=== PATIENT | male | born 1970 | race American Indian/Alaskan Native ===

== ENCOUNTER 2018-03-20 02:09 | Inpatient (IN) | payer MEDICAID ==
[2018-03-20 02:10] VITALS: BMI 22.6
--- NOTE | 2018-03-20 03:17 | C.PDOC ---
History Of Present Illness Patient presents to the ER as a transfer from [facility] where he was medically cleared, accepted for admission for major depression by Dr. Chiu. Denies any physical complaints at this time. Time Seen by Provider: 03/20/18 03:12 Chief Complaint (Nursing): Psychiatric Evaluation History Per: Patient, Other ([facility]) History/Exam Limitations: no limitations Onset/Duration Of Symptoms: Days Current Symptoms Are (Timing): Still Present Suicide/Self Injury Attempted (Context): None Modifying Factor(s): None Severity: None Pain Scale Rating Of: 0 Associated Symptoms: Depression Involuntary Hold By: None Recent travel outside of the [place]: No Past Medical History Reviewed: Historical Data, Nursing Documentation, Vital Signs Vital Signs: Last Vital Signs Temp 98.2 F 03/20/18 02:33 Pulse 64 03/20/18 02:33 Resp 20 03/20/18 02:33 BP 153/83 H 03/20/18 02:33 Pulse Ox 100 03/20/18 02:33 - Medical History PMH: Anxiety, Arthritis, Depression, HTN Family History: States: No Known Family Hx - Social History Hx Alcohol Use: Yes Hx Substance Use: Yes Review Of Systems Constitutional: Negative for: Fever, Chills Cardiovascular: Negative for: Chest Pain, Palpitations Respiratory: Negative for: Cough, Shortness of Breath Gastrointestinal: Negative for: Nausea, Vomiting Psych: Positive for: Depression Physical Exam - Physical Exam Appears: Non-toxic Skin: Warm, Dry Head: Normacephalic Oral Mucosa: Moist Chest: Symmetrical, No Tenderness Cardiovascular: Rhythm Regular Respiratory: No Rales, No Rhonchi, No Wheezing Gastrointestinal/Abdominal: Soft, No Tenderness Neurological/Psych: Oriented x3 ED Course And Treatment O2 Sat by Pulse Oximetry: 100 (Room air) Pulse Ox Interpretation: Normal Disposition Discussed With : Argelia Chiu Comment[facility] and took over the care at 3:20 AM Doctor Will See Patient In The: Hospital Counseled Patient/Family Regarding: Studies Performed, Diagnosis - Disposition Disposition: HOSPITALIZED Disposition Time: 03:20 Condition: FAIR Forms: [facility] ([place]) - POA Present On Arrival: None - Clinical Impression Clinical Impression: Major depression - Scribe Statement The provider has reviewed the documentation as recorded by the Scribe Charli Mortensen All medical record entries made by the Scribe were at my direction and personally dictated by me. I have reviewed the chart and agree that the record accurately reflects my personal performance of the history, physical exam, medical decision making, and the department course for this patient. I have also personally directed, reviewed, and agree with the discharge instructions and disposition. Decision To Admit - Pt Status Changed To: Hospital Disposition Of: Inpatient - Admit Certification Admit to Inpatient:: After my assessment, the patient will require hospitalization for at least two midnights. This is because of the severity of symptoms shown, intensity of services needed, and/or the medical risk in this patient being treated as an outpatient. - InPatient: Physician Admission Certification: I certify that this patient requires 2 or more midnights of care for the following reason:: After my assessment, the patient will require hospitalization for at least two midnights. This is because of the severity of symptoms shown, intensity of services needed, and/or the medical risk in this patient being treated as an outpatient. - . Bed Request Type: Psychiatry Admitting Physician: Argelia Chiu Patient Diagnosis: Major depression
--- NOTE | 2018-03-20 05:41 | PCM.BM ---
<Dimitrios Mosqueda - Last Filed: 03/20/18 05:38> Treatment Plan Problems - Problems identified on initial assessmt MAJOR DEPRESSIVE DISORDER Date Initiated: 03/20/18 Time Initiated: 04:50 Assessment reference: NA Status: Active SUBSTANCE ABUSE Date Initiated: 03/20/18 Time Initiated: 04:50 Assessment reference: NA Status: Active Treatment assets and liabiliti Patient Assests: cooperative, self-reliant, ADL independent, negotiates basic needs Patient Liabilities: financial problems, poor support system, relationship conflicts, dietary restrictions, substance abuse, medical problems - Milieu Protocol Maintain good personal hygiene: daily Encourage regular showers, daily Remind patient to perform daily oral care, daily Assist patient to perform ADL's Maintain personal safety: every shift Educate patient to report safety concerns to staff, every shift Monitor environment for contraband/sharps Medication safety: Monitor for expected outcome, potential side effects: every shift, Assess barriers to learning: every shift, Assess readiness for medication education: every shift <Dory Morgan - Last Filed: 03/22/18 13:14> Family Contact Family involvement: Famliy/SO not involved - Goals for Treatment Patient goals for treatment: "I want to go to rehab in [place]." Discharge/Continuing Care - Education Needs Education Needs: Patient Medication, Patient Coping Skills, Patient Placement options, Patient Community resources - Discharge Discharge Criteria: Tolerates medication w/o severe side effects, No longer exhibiting s/s of withdrawal, Reduction of target symptoms Discharge to:: Substance Abuse Rehab - Treatment Team Participation Discussed with Family/SO: No Was Patient/Family/SO present at Treatment Team Meeting: Yes <Argelia Chiu - Last Filed: 03/24/18 13:24> - Diagnosis (1) Major depression Status: Acute Interventions: 03/24/18 13:24 * Assess/adjust medications daily and /or as needed * See patient on an individual basis 7x/week to assess symptoms of depression * Monitor for side effects & effectiveness of medications * (2) Opioid use disorder, severe, dependence Status: Acute Interventions: 03/24/18 13:24 * Assess 7x/week regarding severity of withdrawal * Educate regarding risks, benefits, side effects and alternatives of medications * Use Motivational Interviewing for abstinence * Use CBT for relapse prevention * Medication management for withdrawal symptoms * Encourage medication assisted treatment *
--- NOTE | 2018-03-20 12:55 | PCM.PSYCH ---
Initial Psychiatric Evaluation - Initial Psychiatric Evaluation Type of Admission: Voluntary Legal Status: Capacity Chief Complaint (in patient's own words): I do not want to live anymore. History of Present Illness and Precipitating Events: Patient is a 47 years old, , unemployed, -[place]ian male with history of depression and substance use was admitted due to worsening of depression and withdrawing from heroin and alcohol. Patient with history of depression for last many years, on medications including Risperdal and gabapentin, currently noncompliant for about 1 week, started feeling increasingly depressed with suicidal ideations to kill himself with a knife, was brought to ER and was admitted. Patient reported that him and his are not getting along, is from his recently which was another trigger for depression and suicidal attempt. Patient has history of 5 previous suicidal attempts by different means including jumping from second story and cutting on self, was admitted to the hospital after all these attempts. Patient also reported seeing things and hearing voices. Also believes that people are watching him and are staring at him. Opioid: This is his drug of choice. Started using heroin 3 years ago, was using 15 bags of heroin daily, now reduced to 5 bags daily, sniffing, last used 2 days ago. Alcohol: This is also his drug of choice. He started using alcohol at 11 years of age, increased gradually. Currently he was using 6 cans of beer daily, each of 24 ounces. Last drink yesterday. His longest period of abstinence was 11 months 2-1/2 years ago. No history of previous detox or rehabs. Patient also smokes 4-5 cigars daily, refused to take nicotine patch. Patient has history of left hip replacement for more than 1 year ago. Patient was born in [place], has ninth grade of education. He is not working for last 1 year and was supported by his , for last 1 week. He has 2 grownup daughters from another female. Currently he lives with his mother. Past Psychiatric History - Past Psychiatric History Previous Treatment History: Partial Hospital History of Abuse: None reported History of ETOH/Drug Use: See HPI History of Family Illness: None reported Pertinent Medical Hx (Current Medical&Sleep Prob, Allergies): Allergies Allergy/AdvReac Type Severity Reaction Status Date / Time No Known Allergies Allergy Verified 12/13/16 21:43 Propranolol 20 mg PO DAILY 03/20/18 Risperdal 0.25 mg PO DAILY 03/20/18 Suboxone 8 mg-2 mg Sl Film 03/20/18 Review of Systems - Psychiatric Psychiatric: As Per HPI, Anhedonia, Depression, Suicidal Ideation Mental Status Examination - Personal Presentation Personal Presentation: Looks stated age - Affect Affect: Depressed - Motor Activity Motor Activity: Calm - Reliability in Providing Information Reliability in Providing Information: Fair - Speech Speech: Organized - Formal Thought Process Formal Thought Process: No Impairment - Hallucinations/Delusions Hallucinations: Other (None reported) Delusions: Other - Obsessions/Compulsions Obsessions: None Compulsions: None - Cognitive Functions Orientation: Person, Place, Situation, Time Sensorium: Alert Attention/Concentration: Attentive Estimate of Intelligence: Average Judgement: Intact, as evidence by: Insight regarding need for hospitalization Memory: Recent intact, as evidence by: Ability to recall events of the day, Remote intact, as evidenced by: Ability to recall historical events - Risk Risk: Withdrawal, Diminished functioning - Strength & Assets Inventory Strength & Assets Inventory: Family support, Cooperative - Limitations Limitations: Other (Lives with mother) DSM 5 DX - DSM 5 DSM 5 Diagnosis: Major depressive disorder recurrent severe with psychotic features. Opioid use disorder severe. Alcohol use disorder severe. Nicotine use disorder severe - Recommended/Plan of Treatment Treatment Recommendations and Plan of Treatment: Patient education. Supportive therapy. CBT for relapse prevention. [place] for abstinence. We will start Librium taper for alcohol withdrawal symptoms. Other as needed medications. We will start supportive therapy for opioid as patient was negative for opioids. We will start Risperdal and sertraline. Projected ELOS: 8-10 days - Smoking Cessation Smoking Cessation Initiated: No Reason for not providing: Patient refused
[2018-03-20] MEDS ORDERED: Aluminum Hydroxide/Magnesium Hydroxide Susp (30 mL) PO PRN (12:57)
[2018-03-20] MEDS: Multiple Vitamins Tab PO SCH (13:30)
[2018-03-21] MEDS: Multiple Vitamins Tab PO SCH (10:33)
--- NOTE | 2018-03-21 23:17 | PCM.PYCHPN ---
Psychiatric Progress Note - Psychiatric Progress Note Medication Change: No Medical Record Reviewed: Yes
[2018-03-22] MEDS: Multiple Vitamins Tab PO SCH (09:57)
--- NOTE | 2018-03-22 10:18 | PCM.PYCHPN ---
Psychiatric Progress Note - Psychiatric Progress Note Patient seen today, length of contact: 15 min Patient Chief Complaint: I was feeling depressed Problems Identified/Issues Discussed: Patient was seen and evaluated, chart reviewed and discussed with the staff. Patient reports depressed mood and he remains isolative and withdrawn. He reports improvement in his feelings of hopelessness and helplessness He reports some withdrawal symptoms. He denies any irritability and agitation. Symptoms are improving but he needs to stay longer for further stabilization. Supportive therapy was given Medication Change: Yes Medical Record Reviewed: Yes Mental Status Examination - Cognitive Function Orientation: Person, Place, Situation, Time Memory: Intact Attention: WNL Concentration: Poor Association: WNL Fund of Knowledge: Poor - Mood Mood: Depressed, Anxious - Affect Affect: Constricted, Depressed - Speech Speech: Soft - Formal Thought Process Formal Thought Process: No Impairment - Suicidal Ideation Suicidal Ideation: No - Homicidal Ideation Homicidal Ideation: No Goal/Treatment Plan - Goal/Treatment Plan Need for Continued Stay: Severe depression anxiety, Severe functional impairment Progress Toward Problem(s) and Goals/Treatment Plan: Major depressive disorder recurrent severe with psychotic features. Opioid use disorder severe. Alcohol use disorder severe. Nicotine use disorder severe Patient education. Supportive therapy. CBT for relapse prevention. [place] for abstinence. Librium prn Other as needed medications. Risperdal Sertraline. - Smoking Cessation Smoking Cessation Initiated: No
[2018-03-23] MEDS: Multiple Vitamins Tab PO SCH (10:27)
--- NOTE | 2018-03-24 01:04 | PCM.PYCHPN ---
Psychiatric Progress Note - Psychiatric Progress Note Patient seen today, length of contact: 15 min Patient Chief Complaint: I was feeling depressed Problems Identified/Issues Discussed: Patient was seen and evaluated, chart reviewed and discussed with the staff. Patient reports depressed mood and he remains isolative and withdrawn. He reports improvement in his feelings of hopelessness and helplessness He reports some withdrawal symptoms. He denies any irritability and agitation. Symptoms are improving but he needs to stay longer for further stabilization. Supportive therapy was given Medication Change: Yes Medical Record Reviewed: Yes Mental Status Examination - Cognitive Function Orientation: Person, Place, Situation, Time Memory: Intact Attention: WNL Concentration: Poor Association: WNL Fund of Knowledge: Poor - Mood Mood: Depressed, Anxious - Affect Affect: Constricted, Depressed - Speech Speech: Soft - Formal Thought Process Formal Thought Process: No Impairment - Suicidal Ideation Suicidal Ideation: No - Homicidal Ideation Homicidal Ideation: No Goal/Treatment Plan - Goal/Treatment Plan Need for Continued Stay: Severe depression anxiety, Severe functional impairment Progress Toward Problem(s) and Goals/Treatment Plan: Major depressive disorder recurrent severe with psychotic features. Opioid use disorder severe. Alcohol use disorder severe. Nicotine use disorder severe Patient education. Supportive therapy. CBT for relapse prevention. [place] for abstinence. Librium prn Other as needed medications. Risperdal Sertraline.
[2018-03-24] MEDS: Multiple Vitamins Tab PO SCH (10:24)
--- NOTE | 2018-03-24 10:38 | PCM.PYCHPN ---
Psychiatric Progress Note - Psychiatric Progress Note Patient seen today, length of contact: 15 min Patient Chief Complaint: I m feeling little better Problems Identified/Issues Discussed: Patient was seen and evaluated, chart reviewed and discussed with the staff. Patient reports some improvement in his mood and some improvement in the feelings of hopelessness and helplessness. He also reports improvement in the withdrawal symptoms but still reports cramps and anxiety. He denies any auditory hallucinations or any paranoia. He is taking medication but denies any side effects. Symptoms are improving but he needs to stay longer for further stabilization. Supportive therapy was given Medication Change: Yes Medical Record Reviewed: Yes Mental Status Examination - Cognitive Function Orientation: Person, Place, Situation, Time Memory: Intact Attention: WNL Concentration: Poor Association: WNL Fund of Knowledge: Poor - Mood Mood: Depressed, Anxious - Affect Affect: Constricted, Depressed - Speech Speech: Soft - Formal Thought Process Formal Thought Process: No Impairment - Suicidal Ideation Suicidal Ideation: No - Homicidal Ideation Homicidal Ideation: No Goal/Treatment Plan - Goal/Treatment Plan Need for Continued Stay: Severe depression anxiety, Severe functional impairment Progress Toward Problem(s) and Goals/Treatment Plan: Major depressive disorder recurrent severe with psychotic features. Opioid use disorder severe. Alcohol use disorder severe. Nicotine use disorder severe Patient education. Supportive therapy. CBT for relapse prevention. [place] for abstinence. Librium prn Other as needed medications. Risperdal Sertraline.
[2018-03-25] MEDS: Multiple Vitamins Tab PO SCH (10:54)
--- NOTE | 2018-03-25 18:53 | RAD ---
Date of service: 03/25/2018 HISTORY: Discharge requirement COMPARISON: She TECHNIQUE: Chest PA and lateral FINDINGS: LUNGS: No active pulmonary disease. PLEURA: No significant pleural effusion identified. No pneumothorax apparent. CARDIOVASCULAR: No aortic atherosclerotic calcification present. Normal cardiac size. No pulmonary vascular congestion. OSSEOUS STRUCTURES: No significant abnormalities. VISUALIZED UPPER ABDOMEN: Normal. OTHER FINDINGS: None. IMPRESSION: No active disease.
[2018-03-26] MEDS: Multiple Vitamins Tab PO SCH (09:47)
[2018-03-27] MEDS: Multiple Vitamins Tab PO SCH (09:34)
[2018-03-28] MEDS: Multiple Vitamins Tab PO SCH (10:07)
[2018-03-29] MEDS: Multiple Vitamins Tab PO SCH (09:09)
[2018-03-30 06:20] VITALS: BP 131/78; PULSE 58; RESP 20; TEMP 97.8; O2SAT 97
[2018-03-30] MEDS: Multiple Vitamins Tab PO SCH (09:50)
--- NOTE | 2018-03-30 09:57 | PCM.PYCHDC ---
Mental Status Examination - Mental Status Examination Orientation: Person, Place, Situation, Time Memory: Intact Mood: Neutral Affect: Constricted Speech: Soft Attention: WNL Concentration: WNL Association: WNL Fund of Knowledge: WNL Formal Thought Process: No Impairment Description of patient's judgement and insight: good, fair Psychotic Thoughts and Behaviors: denies any AVH Suicidal Ideation: No Current Homicidal Ideation?: No Discharge Summary - Discharge Note Consultations:: List each consultation separately and include: 1. Reason for request. 2. Findings. 3. Follow-up Summary of Hospital Course include:: 1. Description of specific treatment plan utilized for patients during their course of treatmen. 2. Summarize the time- course for resolution of acute symptoms and/or regressed behaviors. 3. Describe issues identified and worked on during hospitalization. 4. Describe medication utilized. 5. Describe medical problems identified and treated. 6. Reassessment of suicide risk - Diagnosis (1) Major depression Current Visit: Yes Status: Acute (2) Opioid use disorder, severe, dependence Current Visit: Yes Status: Acute - Final Diagnosis (DSM 5) Condition upon Discharge: FAIR Disposition: HOME/ ROUTINE Follow-up Treatment Plan: Major depressive disorder recurrent severe with psychotic features. Opioid use disorder severe. Alcohol use disorder severe. Nicotine use disorder severe Patient education. Supportive therapy. CBT for relapse prevention. [place] for abstinence. Librium prn Other as needed medications. Risperdal Sertraline. Prescriptions/Medication Reconciliation: Gabapentin [Neurontin] 300 mg PO BID #60 cap Mirtazapine [Remeron] 30 mg PO HS #30 tab risperiDONE [RisperDAL Tab] 2 mg PO HS #30 tab Sertraline [Zoloft] 100 mg PO DAILY #30 tab traZODone [Desyrel] 50 mg PO HS PRN #30 tab PRN Reason: Insomnia
== END 2018-03-30 10:45 | disposition home or self-care (01) | DRG 430 ==
LOC: C.ER 02:09 → C.5E 03:19
PROVIDERS: ADMIT Psychiatry & Neurology Psychiatry; ATTEND Psychiatry & Neurology Psychiatry
PROC: GZ3ZZZZ Medication Management (ICD-10-PCS; principal; 2018-03-20)
PROC: HZ89ZZZ Medication Management for Substance Abuse Treatment, Other Replacement Medication (ICD-10-PCS; 2018-03-20)
PROC: GZ56ZZZ Individual Psychotherapy, Supportive (ICD-10-PCS; 2018-03-20)
PROC: GZHZZZZ Group Psychotherapy (ICD-10-PCS; 2018-03-20)
DX: F33.3 Major depressive disorder, recurrent, severe with psychotic symptoms (principal); F11.20 Opioid dependence, uncomplicated; F10.20 Alcohol dependence, uncomplicated; R45.851 Suicidal ideations; I10 Essential (primary) hypertension; M19.90 Unspecified osteoarthritis, unspecified site; F41.9 Anxiety disorder, unspecified; Z72.0 Tobacco use; Z91.19 Patient's noncompliance with other medical treatment and regimen; Z96.642 Presence of left artificial hip joint